=== PATIENT | female | born 1985 | race Caucasian/White ===

== ENCOUNTER 2016-07-25 18:55 | Emergency (ER) ==
[2016-07-25] MEDS ORDERED: DUONEB (A & A) INH ONE (19:17)
--- NOTE | 2016-07-25 19:18 | PROVIDER DOCUMENTATION ---
HPI-Respiratory General - General Source: patient <Prasanna Harrison - Last Filed: 07/25/16 22:15> <Judd Awad - Last Filed: 07/25/16 23:42> - General Chief Complaint: Cold Symptoms Stated Complaint: COUGH, FEVER Time Seen by Provider: 07/25/16 19:07 Allergies/Adverse Reactions: Patient Allergies Allergy/AdvReac Type Severity Reaction Status Date / Time Penicillins Allergy Severe ANAPHYLAXIS Verified 07/25/16 19:48 dexamethasone [From Decadron] Allergy Mild RASH Verified 07/25/16 19:48 dexamethasone sod phosphate * Allergy Mild RASH Verified 07/25/16 19:48 [From Decadron] ketorolac tromethamine * Allergy Mild HIVES Verified 07/25/16 19:48 [From Toradol] metoclopramide HCl * Allergy Mild RASH Verified 07/25/16 19:48 [From Reglan] azithromycin [From Zithromax] AdvReac ABDOMINAL Verified 07/25/16 19:48 PAIN Home Medications: Home Medication List Medication Instructions Recorded Confirmed Last Taken Type Bisacodyl [Dulcolax] 10 mg WA QHS #20 supp 07/25/16 Unknown Rx Codeine/Promethazine [Phenergan 5 ml PO TID PRN PRN #1 udc 07/25/16 Unknown Rx with Codeine] Levofloxacin [Levaquin] 750 mg PO DAILY #10 tablet 07/25/16 Unknown Rx Na Phos,M-B/Na Phos,Di-Ba [Fleet 133 ml WA HS PRN PRN #3 enema 07/25/16 Unknown Rx Enema] Polyethylene Glycol 3350 [Miralax] 255 gm PO DAILY #1 powder 07/25/16 Unknown Rx - History of Present Illness-Resp Nature of Presenting Problem: Pt is a 30 y/o F c chief complaint of one weeks of unproductive cough, fever, R lower chest pain. Pt states her fever has been intermittent with a tmax of 103F. On arrival, pt is in minimal distress. (Prasanna Harrison) Review of Systems - Adult - REVIEW OF SYSTEMS - ADULT Constitutional: reports: chills, fever, fatique Eyes: reports: no symptoms reported. denies: blurred vision, double vision Ears, Nose, Mouth & Throat: reports: no symptoms reported. denies: ear pain, nose pain, throat pain Cardiovascular: reports: chest pain. denies: orthopnea Respiratory: reports: cough. denies: shortness of breath Gastrointestinal: reports: abdominal pain, nausea, vomiting Genitourinary: reports: no symptoms reported. denies: dysuria, hematuria Musculoskeletal: reports: no symptoms reported. denies: bone pain, joint pain, joint swelling Integumentary: reports: no symptoms reported. denies: hives, itching, rash Neurological: reports: no symptoms reported. denies: numbness, paresthesia Psychiatric: reports: no symptoms reported. denies: anxiety, emotional problems Endocrine: reports: no symptoms reported. denies: cold intolerance, heat intolerance Hematologic/Lymphatic: reports: no symptoms reported. denies: blood clots, low blood count Allergic/Immunologic: reports: no symptoms reported. denies: food allergy, frequent infections All Other Systems: Reviewed and Negative <Prasanna Harrison - Last Filed: 07/25/16 22:15> Past History - Adult - PAST MEDICAL HISTORY-ADULT Review of Records: reports: Old Records Reviewed, Nursing Assessment Review, Medications Reviewed, Social history reviewed & non-contributory. Major Childhood Illnesses: reports: denies history Cardiovascular: reports: denies history Respiratory: reports: denies history Gastrointestinal: reports: denies history Obstetrical/Gynecological: reports: denies history Genitourinary: reports: denies history Musculoskeletal: reports: denies history Neurological: reports: denies history Psychiatric: reports: bipolar Endocrine/Immune: reports: denies history Other Conditions: reports: denies history - PRIOR SURGERIES/PROCEDURES Surgical/Procedure History: reports: reviewed, not pertinent - PRIOR HOSPITALIZATIONS Prior Hospitalizations: reports: none - IMMUNIZATION STATUS Childhood Immunizations: See Nurse Assessment Flu Vaccine: See Nurse Assessment - FAMILY HISTORY Family History: reviewed, not pertinent - SOCIAL HISTORY Smoking: denies Substance Use: none/never Alcohol Use Frequency: never Living Situation: family <Prasanna Harrison - Last Filed: 07/25/16 22:15> Physical Exam-General - PHYSICAL EXAM-ADULT Initial Vital Signs Reviewed: Yes - CONSTITUTIONAL General Appearance: alert, mild distress - EYES Eyes: PERRL/EOMI, pink conjunctivae, fundi clear, no AV nicking - HEAD, EARS, NOSE, MOUTH & THROAT HENMT: normocephalic/atraumatic, moist mucous membranes, normal ENT inspection - NECK Neck: non-tender - RESPIRATORY Respiratory: chest non-tender, lungs clear, normal breath sounds - CARDIOVASCULAR Cardiovascular: normal peripheral pulses, regular rate, rhythm, no edema - GASTROINTESTINAL (ABDOMEN) Abdominal Exam: normal bowel sounds, guarding (RUQ), tenderness (RUQ) - MUSCULOSKELETAL Back Exam: normal inspection, no CVA tenderness, no vertebral tenderness Extremity: normal range of motion, non-tender, normal gait - SKIN Integumentary: normal color, normal turgor, warm/dry - NEUROLOGIC Neurologic: grossly normal, no motor/sensory deficits - PSYCHIATRIC Psych/Mental Status: normal mood/affect, normal thought content, normal thought process, oriented x 3 <Prasanna Harrison - Last Filed: 07/25/16 22:15> Progress - REASSESSMENT Reassessment #1 Time Reassessed: 20:58 (On discharge, pt was tachycardiac at 120. Ordered labs and handed over care to Velia Awad ROLL[facility] TURNER. Flu/Strep swabs negative. CXR negative. Pt has numerous allergies that limits tx. Levaquin PO and Phenergan c codeine ordered. ) <Prasanna Harrison - Last Filed: 07/25/16 22:15> Departure - Departure Time of Disposition Order: 20:24 Certified Medical Emergency: Emergent <Prasanna Harrison - Last Filed: 07/25/16 22:15> - Departure Time of Disposition Order: 23:41 Certified Medical Emergency: Emergent <Judd Awad - Last Filed: 07/25/16 23:42> - Departure DIAGNOSIS: Bronchitis, Constipation URI (upper respiratory infection) Qualifiers: URI type: unspecified URI Qualified Code(s): J06.9 - Acute upper respiratory infection, unspecified Disposition: HOME 01 Condition: Stable Additional Instructions: ED Follow Up Instructions: You have been treated by a care provider in the Emergency Department. These instructions are being provided to you so you can have an understanding of how to care for yourself upon discharge. Upon discharge from the Emergency Department, you are responsible for making arrangements for follow-up care by a physician of your choice. Take all prescribed medications as directed. Return to the Emergency Department immediately for any new or worsening symptoms. You may call the Physician Referral phone number at [phone] to obtain a list of Physicians who are taking new patients. Prescriptions: Bisacodyl [Dulcolax] 10 mg WA QHS #20 supp Na Phos,M-B/Na Phos,Di-Ba [Fleet Enema] 133 ml WA HS PRN PRN #3 enema PRN Reason: Constipation Levofloxacin [Levaquin] 750 mg PO DAILY #10 tablet Polyethylene Glycol 3350 [Miralax] 255 gm PO DAILY #1 powder Codeine/Promethazine [Phenergan with Codeine] 5 ml PO TID PRN PRN #1 udc PRN Reason: Cough Referrals: None,PCP [Primary Care Provider] - Instructions: Acute Bronchitis, [id number], Upper Respiratory Infection, Adult, [id number] Attestation - Physician/ DELILAH Attestation Patient care was provided by Advanced Practice Provider:: Yes Advanced Practice Provider:: Prasanna Harrison Advanced Practice Provider documentation review:: The Mid-level provider documentation, treatment plan and medical decision making was reviewed by the physician who agrees with all treatment and medical decision making by the MLP. <Prasanna Harrison - Last Filed: 07/25/16 22:15> - Physician/ DELILAH Attestation Patient care was provided by Advanced Practice Provider:: Yes Advanced Practice Provider:: Judd Awad Advanced Practice Provider documentation review:: The Mid-level provider documentation, treatment plan and medical decision making was reviewed by the physician who agrees with all treatment and medical decision making by the MLP. <Judd Awad - Last Filed: 07/25/16 23:42> Physician Attestation
[2016-07-25] MEDS ORDERED: LEVAQUIN PO ONE (19:34)
[2016-07-25] MEDS ORDERED: PHENERGAN WITH CODEINE LIQUID PO ONE (19:39)
[2016-07-25 21:01] LABS: MANUAL DIFF NEEDED? NO
[2016-07-25 21:09] LABS: BASO% 0.3 % (0.0-0.8); EOS# 0.03 X1000 (0.0-0.7); EOS% 0.8 % (0.0-10.0); HEMOGLOBIN 11.2 g/dL (12.0-16.0); LYMPH# 1.02 X1000 (1.2-3.4); LYMPH% 27.9 % (20.5-51.1); MCH 30.8 PG (27-31); MCV 96.2 FL (81-99); MONO# 0.23 X1000 (0.11-0.59); MONO% 6.3 % (1.7-9.3); MPV 10.1 FL (7.4-10.4); NEUT% 64.7 % (42.2-75.2); PLT 167 X1000 (130-400); RBC 3.64 XMIL (4.2-5.4)
[2016-07-25 21:27] LABS: AGAP 13; BUN 9 mg/dL (8-22); CALCIUM 8.6 mg/dL (8.8-10.2); CHLORIDE 99 mmol/L (98-107); COSMO 275; POTASSIUM 3.2 mmol/L (3.5-5.1); SODIUM 138 mmol/L (136-145); TCO2 26 mmol/L (25-35)
[2016-07-25 21:51] LABS: ALKALINE PHOSPHATASE 135 U/L (32-104); AMYLASE 93 U/L (20-200); GOT 13 U/L (10-30); GPT 12 U/L (10-36); LIPASE 17 U/L (13-60)
[2016-07-25 22:30] LABS: BILIRUBIN URINE NEGATIVE (NEGATIVE); BLOOD URINE TRACE (NEGATIVE); COLOR STRAW; GLUCOSE URINE NEGATIVE (NEGATIVE); LEUKOCYTES URINE NEGATIVE (NEGATIVE); NITRITE URINE NEGATIVE (NEGATIVE); PROTEIN URINE NEGATIVE (NEGATIVE); SP GRAVITY URINE 1.007; TURBIDITY URINE CLEAR (CLEAR); URINE CULTURE NEEDED? NO; URINE MICRO REVIEW NEEDED? NO; URINE SOURCE CLEAN CATCH; UROBILINOGEN URINE NORMAL (NORMAL)
[2016-07-25 22:32] LABS: UR EPITHELIAL CELLS <10 /HPF (<10); URINE BACTERIA NEGATIVE /HPF; URINE RBC <10 /HPF (<10); URINE WBC <10 /HPF (<10)
[2016-07-26 00:13] LABS: UR AMPHETAMINES QUAL NONE DETECTED (NONE DETECT); UR BARBITUATES QUAL NONE DETECTED (NONE DETECT); UR BENZODIAZEPIN QUAL NONE DETECTED (NONE DETECT); UR CANNABINOIDS QUAL NONE DETECTED (NONE DETECT); UR COCAINE QUAL NONE DETECTED (NONE DETECT); UR METHADONE QUAL NONE DETECTED (NONE DETECT); UR OPIATES QUAL PRESUMPTIVE POSITIVE (NONE DETECT); UR OXYCODONE QUAL NONE DETECTED (NONE DETECT); UR PCP QUAL NONE DETECTED (NONE DETECT)
[2016-07-26 00:17] VITALS: BP 126/92
--- NOTE | 2016-07-26 05:44 | EKG Report ---
Test Performed on : 07/25/2016 11:58:49 PM Test Reason : HEART RATE Blood Pressure : / mmHG Vent. Rate : 104 BPM Atrial Rate : 104 BPM P-R Int : 138 ms QRS Dur : 080 ms QT Int : 332 ms P-R-T Axes : 064 053 040 degrees QTc Int : 436 ms Sinus tachycardia. Otherwise normal ECG When compared with ECG of 07-MAY-2016 20:13, T wave inversion no longer evident in Anterior leads Unconfirmed Result
--- NOTE | 2016-07-26 07:34 | Diag Imaging Result Document ---
PROCEDURE NAME: CHEST-2 VIEWS - 07/25/2016 FRONTAL AND LATERAL CHEST, TWO VIEWS: COMPARISON: Compared to 05/07/2016. FINDINGS: The lungs are well expanded. The heart is not enlarged. The vessels are not distended. There are no infiltrates. No pleural effusions. IMPRESSION: No pneumonia.
--- NOTE | 2016-07-26 08:02 | Diag Imaging Result Document ---
PROCEDURE NAME: RENAL STONE SEARCH - 07/25/2016 CT ABDOMEN AND PELVIS WITHOUT ORAL OR INTRAVENOUS CONTRAST: TECHNIQUE: Dose-reduction protocol. COMPARISON: Compared to 06/26/2015. FINDINGS: The lung bases are clear. Normal spleen and adrenal glands. The gallbladder has been removed. Normal pancreas. No focal hepatic abnormality identified on this noncontrasted exam. The upper liver and abdomen are not included on this renal stone search. No perinephric inflammation. No renal stones. No hydronephrosis. Normal aorta. No bowel obstruction. Normal appendix. No abscess. There is stool throughout the colon. No free air. The urinary bladder is moderately distended and appears normal. A 2.1 cm cyst arises from the left ovary. I believe the uterus has been removed. IMPRESSION: 1. No renal stones or hydronephrosis. 2. Cholecystectomy. 3. Constipation. 4. There is a 2.1 cm left ovarian cyst. A preliminary report was given at 10:05 p.m.
== END 2016-07-26 00:21 | disposition home or self-care (01) ==
LOC: ED 18:55
DX: J40 Bronchitis, not specified as acute or chronic (principal); J06.9 Acute upper respiratory infection, unspecified; K59.00 Constipation, unspecified; N83.202 Unspecified ovarian cyst, left side; R05 Cough; R50.9 Fever, unspecified; R07.89 Other chest pain; R53.83 Other fatigue; R10.9 Unspecified abdominal pain; R11.2 Nausea with vomiting, unspecified; R10.811 Right upper quadrant abdominal tenderness; R00.0 Tachycardia, unspecified
CPT/HCPCS: 71020; 74176; 80048; 81001; 82150; 83690; 84075; 84450; 84460; 85025; 87081; 87430; 87804; 93005; 94640; G0480; 80324; 80345; 80346; 80349; 80353; 80358; 80361; 80365; 83992